=== PATIENT | male | born 1970 | race Caucasian/White ===

== ENCOUNTER 2017-05-29 06:03 | Emergency (ER) | payer OTHER ==
[~2017-05-29] VITALS: Ht 182.8 cm; Wt 99.8 kg
[~2017-05-29 06:03] MED LIST: AUGMENTIN 875 M1 TAB PO; BACTRIM DS 8001 TA1 PO; CIPRO500 MG PO; DARVOCET N 1001 TAB PO; PRILOSEC40 MG; ZYRTEC10 MG
== END 2017-05-29 07:57 | disposition home or self-care (01) ==
LOC: ED 06:03
DX: S60.221A Contusion of right hand, initial encounter (principal); W23.0XXA Caught, crushed, jammed, or pinched between moving objects, initial encounter; Y93.89 Activity, other specified; Y92.69 Other specified industrial and construction area as the place of occurrence of the external cause; Y99.0 Civilian activity done for income or pay

== ENCOUNTER → 2018-05-07 | Outpatient (CLI) | payer OTHER ==
[2018-05-07 11:32] LABS: MEAN CELL VOLUME 86.1 fl (80.0-94.0); MEAN CORPUSCULAR HGB 29.3 pg (27.0-31.0); MEAN PLATELET VOLUME 9.5 fl (9.6-12.3); RED BLOOD COUNT 5.46 10*6/uL (4.50-5.90); RED CELL DISTRI WIDTH 13.2 % (0-14.5); WHITE BLOOD COUNT 8.5 10*3/uL (4.8-10.8)
[2018-05-07 12:04] LABS: CHLORIDE 105 mmol/L (98-107); POTASSIUM 3.9 mmol/L (3.5-5.1); SODIUM 139 mmol/L (136-145)
[2018-05-07 12:22] LABS: ALBUMIN 4.2 gm/dl (3.1-4.5); ALKALINE PHOSPHATASE 63 U/L (45-117); BUN 28 mg/dl (7-24); CHOLESTEROL 177 mg/dL (<200); CREATININE 1.07 mg/dL (0.70-1.30); HDL CHOLESTEROL 31 mg/dl (40-60); LDL CHOLESTEROL 69 mg/dL (9-159); SGOT/AST 27 IU/L (3-35); SGPT/ALT 46 U/L (12-78); TOTAL PROTEIN 7.8 gm/dL (6.4-8.2); TRIGLYCERIDES 386 mg/dl (<150); VLDL CHOLESTEROL 77 mg/dL (6-40)
== END | disposition home or self-care (01) ==
LOC: LAB 10:47
PROVIDERS: Family Medicine
DX: E78.00 Pure hypercholesterolemia, unspecified (principal); I10 Essential (primary) hypertension; R00.2 Palpitations

== ENCOUNTER 2018-09-13 08:18 | Inpatient (IN) | payer OTHER ==
[2018-09-13] VITALS (7 sets, daily range): BP systolic 124–162; BP diastolic 81–100
[~2018-09-13] VITALS: Ht 182.8 cm; Wt 108.5 kg
--- NOTE | ~2018-09-13 | ST ---
[place], [place] EXERCISE STRESS TEST REPORT [id number] UNIT #: [id number] ROOM: 404 DOCTOR: JENSEN LIU,TONO Oconnor BIRTHDATE: [birth year] DOS: 09/14/2018 EKG PART OF THE TREADMILL TEST WITH CARDIOLITE The patient is a 48-year-old gentleman admitted to [facility] with recurrent episodes of chest pains. The patient's cardiac enzymes were negative. The patient was tested under standard [place] protocol and he exercised for 10 minutes and 30 seconds and the test was stopped because of patient's fatigue and he had reached the targeted heart rate of 91% of the PMHR. Peak heart rate was 158 beats per minute. Peak blood pressure was 178 systolic over 98 diastolic. The patient's baseline EKG showed normal sinus rhythm, normal cardiac axis, no significant ST-T abnormality. During the exercise and recovery phase, the patient did not develop any significant EKG abnormality compatible with myocardial ischemia. IMPRESSION: 1. Normal EKG part of the treadmill Cardiolite stress test at 91% peak maximal heart rate. 2. Nuclear scan results to be reported by Dr. West later today. TONO STYLES MD CM:STRESS:EXERCISE STRESS TEST REPORT [id number] TONO STYLES MD
--- NOTE | ~2018-09-13 | EKG ---
[place], [place] ELECTROCARDIOGRAM REPORT NAME: BROOK KWON UNIT #: [id number] ROOM: 404 DOCTOR: XIANG DRAFT REPORT BIRTHDATE: [birth year] [facility] Test Date: 2018-09-13 Test Time: 14:39:13 Pat Name: BROOK KWON Department: Room: H2006 Gender: M Comptometer Operator: ADALID : 1970 Requested By: MATHEW MARTIN Order Number: [id number] Reading MD: Alexandre West MD Measurements Intervals [place] Rate: 74 P: 32 IN: 159 QRS: 48 QRSD: 101 T: 33 QT: 383 QTc: 425 Interpretive Statements Sinus rhythm No change from earlier ECG this date. Electronically Signed On 09-13-2018 12:48:27 PDT by Alexandre West MD CM:EKGRPT:ELECTROCARDIOGRAM REPORT [id number] MATHEW SAUNDERS DRAFT REPORT MATHEW MARTIN DO
--- NOTE | ~2018-09-13 | WRIGHTHP ---
[place], [place] PATIENT HISTORY AND PHYSICAL EXAM NAME: BROOK KWON [facility] #: [id number] UNIT #: [id number] ROOM: 404 DOCTOR: TONO STYLES MD BIRTHDATE: [birth year] DOS: HISTORY OF PRESENT ILLNESS: The patient is a 48-year-old gentleman with a past medical history of: 1. Gastroesophageal reflux disease and esophagitis. 2. Benign essential hypertension. 3. Obesity with a BMI of 32.4. The patient presented to the Emergency Department with 2 episodes of chest pressure sensation in the lower substernal area with some sweating, but no nausea, vomiting, no radiation of the pain. The patient's second episode lasted more than an hour and he was evaluated in the Emergency Department. The patient was admitted and his cardiac enzymes were found to be normal and he was scheduled for a cardiac stress test. No GI or urinary symptoms. REVIEW OF SYSTEMS: CARDIOVASCULAR SYSTEM: Complains of recurrent chest pressure, two episodes prior to hospital admission. GASTROINTESTINAL: History of acid reflux for which the patient takes Zantac. RESPIRATORY: No increasing shortness of breath or wheezing. FAMILY HISTORY: Noncontributory. SOCIAL HISTORY: Denies smoking cigarettes, alcohol or drug abuse. HOME MEDICATIONS: The patient takes metoprolol and Zantac at home. ALLERGIES: No known drug allergies. PHYSICAL EXAMINATION: GENERAL: Alert and oriented x 3, obese, BMI of 32.5. VITAL SIGNS: Blood pressure 122/86, heart rate of 62 beats per minute, breathing 18 times per minute, afebrile. HEENT AND NECK: Extraocular movements are intact. Sclerae are anicteric. Oral mucosa is moist and clean. No obvious facial weakness. Neck is supple without any lymphadenopathy. No thyromegaly. No JVD. No carotid arterial bruits. LUNGS: Clear to auscultation. No wheezing. No rhonchi. CARDIOVASCULAR SYSTEM: Heart rate is regular in rate and rhythm. S1 and S2 normally audible. No significant murmur or any other abnormal cardiac sounds. ABDOMEN: Soft, nontender. No obvious organomegaly. Bowel sounds are present. No obvious herniation. EXTREMITIES: Without significant cyanosis or edema. Warm to touch. CENTRAL NERVOUS SYSTEM: Alert and oriented x 3. Cranial nerves II-XII are intact. Speech is normal. The patient is able to move all extremities. Normal muscle strength. Deep tendon reflexes are equal on both sides. Plantars were downgoing. IMPRESSION: [place], [place] PATIENT HISTORY AND PHYSICAL EXAM NAME: BROOK KWON [facility] #: [id number] UNIT #: [id number] ROOM: [facility] DOCTOR: TONO STYLES MD BIRTHDATE: [birth year] 1. The patient with 2 episodes of chest pressure sensation in substernal and epigastric, no radiation, some diaphoresis, but no nausea, vomiting with negative cardiac enzymes, taken for a cardiac stress test and results are still pending. 2. Obesity, BMI of 32.5. The patient worked with [employer]. 3. Benign essential hypertension. The patient continued on metoprolol. Blood pressures are well controlled. 4. Gastroesophageal reflux disease and esophagitis for which the patient takes Zantac at home. Recommended to try omeprazole and head in elevation. 5. Nuclear scan results will be reported by Dr. West later today and if normal, he can be discharged to home and to follow up with Dr. Mian Everett within a week. TONO STYLES MD CM:HISPHYS:PATIENT HISTORY AND PHYSICAL EXAMINATION [id number] TONO STYLES MD 09/14/18 1141 interface
--- NOTE | ~2018-09-13 | EKG ---
[place], [place] ELECTROCARDIOGRAM REPORT NAME: BROOK KWON UNIT #: [id number] ROOM: [facility] DOCTOR: XIANG DRAFT REPORT BIRTHDATE: [birth year] [facility] [place] Test Date: 2018-09-13 Test Time: 08:22:42 Pat Name: BROOK KWON Department: Room: 006 Gender: M Differential Tester: : 1970 Requested By: MATHEW MARTIN Order Number: [id number] Reading MD: Alexandre West MD Measurements Intervals [place] Rate: 60 P: 25 IN: 154 QRS: 58 QRSD: 105 T: 31 QT: 405 QTc: 405 Interpretive Statements Sinus rhythm Electronically Signed On 09-13-2018 12:45:48 PDT by Alexandre West MD CM:EKGRPT:ELECTROCARDIOGRAM REPORT [id number] 1245 MATHEW SAUNDERS DRAFT REPORT MATHEW MARTIN DO
--- NOTE | ~2018-09-13 | EKG ---
[place], [place] ELECTROCARDIOGRAM REPORT NAME: BROOK KWON UNIT #: [id number] ROOM: 404 DOCTOR: XIANG DRAFT REPORT BIRTHDATE: [birth year] [facility] Test Date: 2018-09-13 Test Time: 12:18:12 Pat Name: BROOK KWON Department: Room: H2006 Gender: M Rn L And D: EBONIE : 1970 Requested By: MATHEW MARTIN Order Number: [id number] Reading MD: Alexandre West MD Measurements Intervals [place] Rate: 65 P: 45 [place]: 160 QRS: 39 QRSD: 103 T: 27 QT: 398 QTc: 414 Interpretive Statements Sinus rhythm No change from earlier ECG this date. Electronically Signed On 09-13-2018 12:46:45 PDT by Alexandre West MD CM:EKGRPT:ELECTROCARDIOGRAM REPORT [id number] 1246 MATHEW SAUNDERS DRAFT REPORT MATHEW MARTIN DO
[2018-09-13 08:32] LABS: BASO # 0.1 10*3/uL (0.0-0.1); BASO % 0.7 % (0.0-1.0); EOS # 0.3 10*3/uL (0.0-0.4); EOS % 3.3 % (1.0-4.0); HEMATOCRIT 43.6 % (42.0-52.0); LYMPH # 2.7 10*3/uL (1.3-4.4); LYMPH % 31.2 % (27.0-41.0); MEAN CELL VOLUME 86.9 fl (80.0-94.0); MEAN CORPUSCULAR HGB 29.9 pg (27.0-31.0); MEAN CORPUSCULAR HGB CONC 34.4 g/dl (33.0-37.0); MEAN PLATELET VOLUME 9.2 fl (9.6-12.3); MONO # 0.7 10*3/uL (0.1-1.0); MONO % 7.7 % (3.0-9.0); NEUT # 4.9 10*3/uL (2.3-7.9); NEUT % 56.5 % (47.0-73.0); PLATELET COUNT AUTOMATED 240 10*3/uL (130-400); RED BLOOD COUNT 5.02 10*6/uL (4.50-5.90); RED CELL DISTRI WIDTH 13.1 % (0-14.5); WHITE BLOOD COUNT 8.6 10*3/uL (4.8-10.8)
[2018-09-13 08:41] LABS: ACT PARTIAL THROMBO TIME 25.9 SECONDS (20.8-31.5); INTERNATIONAL NORM RATIO 0.9 (2.0-3.5)
[2018-09-13] MEDS ORDERED: LOPRESSOR25 MG PO (08:46)
[2018-09-13 08:48] LABS: ALBUMIN 3.6 gm/dl (3.1-4.5); ALKALINE PHOSPHATASE 61 U/L (45-117); BUN 27 mg/dl (7-24); CHLORIDE 107 mmol/L (98-107); CREATININE 1.45 mg/dL (0.70-1.30); POTASSIUM 4.3 mmol/L (3.5-5.1); SGOT/AST 18 IU/L (3-35); SGPT/ALT 40 U/L (12-78); SODIUM 142 mmol/L (136-145); TOTAL PROTEIN 7.5 gm/dL (6.4-8.2)
[2018-09-13 08:51] LABS: TROPONIN I < 0.015 ng/ml (<0.045)
[2018-09-13] MEDS ORDERED: ASPIR-TRIN325 MG PO (12:21)
[2018-09-13] MEDS ORDERED: ZANTAC 150150 MG PO (20:03)
[2018-09-14] VITALS: BP 122/86
[2018-09-14 10:04] VITALS: BP 112/76
[2018-09-14 12:00] VITALS: BP 116/71
== END 2018-09-14 16:08 | disposition home or self-care (01) | DRG 313 ==
LOC: ED 08:18 → EDHOLD 11:14 → 4E 11:14
PROVIDERS: Emergency Medicine
DX: R07.9 Chest pain, unspecified (principal); I10 Essential (primary) hypertension; K21.9 Gastro-esophageal reflux disease without esophagitis; E66.9 Obesity, unspecified; Z79.899 Other long term (current) drug therapy; Z98.52 Vasectomy status; Z68.32 Body mass index [BMI] 32.0-32.9, adult

== ENCOUNTER → 2020-01-20 | Outpatient (CLI) | payer BC ==
[~2020-01-20] MED LIST changes: +ASPIR-TRIN325 MG PO; +LOPRESSOR25 MG PO; +ZANTAC 150150 MG PO
[2020-01-20 10:50] LABS: HEMATOCRIT 47.5 % (42.0-52.0); HEMOGLOBIN 16.4 g/dl (14.0-18.0); MEAN CELL VOLUME 85.7 fl (80.0-94.0); MEAN CORPUSCULAR HGB 29.6 pg (27.0-31.0); MEAN CORPUSCULAR HGB CONC 34.5 g/dl (33.0-37.0); MEAN PLATELET VOLUME 8.9 fl (9.6-12.3); RED BLOOD COUNT 5.54 10*6/uL (4.50-5.90); RED CELL DISTRI WIDTH 12.9 % (0-14.5); WHITE BLOOD COUNT 7.7 10*3/uL (4.8-10.8)
[2020-01-20 11:22] LABS: ALBUMIN 3.8 gm/dl (3.1-4.5); BUN 25 mg/dl (7-24); CHLORIDE 107 mmol/L (98-107); CHOLESTEROL 187 mg/dL (<200); CREATININE 1.21 mg/dL (0.70-1.30); HDL CHOLESTEROL 33 mg/dl (40-60); LDL CHOLESTEROL 92 mg/dL (9-159); POTASSIUM 3.6 mmol/L (3.5-5.1); SGOT/AST 19 IU/L (3-35); SGPT/ALT 39 U/L (12-78); SODIUM 143 mmol/L (136-145); TRIGLYCERIDES 311 mg/dl (<150); VLDL CHOLESTEROL 62 mg/dL (6-40)
[2020-01-20 11:24] LABS: ALKALINE PHOSPHATASE 75 U/L (45-117)
== END | disposition home or self-care (01) ==
LOC: LAB 10:31
PROVIDERS: Family Medicine
DX: Z13.220 Encounter for screening for lipoid disorders (principal); E55.9 Vitamin D deficiency, unspecified; K21.9 Gastro-esophageal reflux disease without esophagitis; R19.00 Intra-abdominal and pelvic swelling, mass and lump, unspecified site

== ENCOUNTER → 2020-01-24 | Outpatient (CLI) | payer BC | END | disposition home or self-care (01) | LOC: CT 10:39 | DX: N20.0 Calculus of kidney (principal); D17.30 Benign lipomatous neoplasm of skin and subcutaneous tissue of unspecified sites; J98.11 Atelectasis; R19.04 Left lower quadrant abdominal swelling, mass and lump ==

== ENCOUNTER → 2020-10-30 | Outpatient (CLI) | payer SELFPAY | END | disposition home or self-care (01) | LOC: COVID19 08:10 | PROVIDERS: ATTEND Hospitalist | DX: U07.1 COVID-19 (principal) ==

== ENCOUNTER 2022-07-30 15:06 | Emergency (ER) | payer OTHER ==
[~2022-07-30] VITALS: Wt 90.7 kg
[2022-07-30] MEDS ORDERED: PREDNISONE50 MG PO (16:58)
== END 2022-07-30 17:03 | disposition home or self-care (01) ==
LOC: ED 15:06
DX: R60.0 Localized edema (principal); Z79.899 Other long term (current) drug therapy; F17.200 Nicotine dependence, unspecified, uncomplicated; Z98.890 Other specified postprocedural states

== ENCOUNTER → 2022-08-07 | Outpatient (CLI) | payer OTHER ==
[~2022-08-07] MED LIST changes: +PREDNISONE50 MG PO
[2022-08-07 13:08] LABS: HEMATOCRIT 47.7 % (42.0-52.0); MEAN CELL VOLUME 87.5 fl (80.0-94.0); MEAN CORPUSCULAR HGB 29.4 pg (27.0-31.0); MEAN CORPUSCULAR HGB CONC 33.5 g/dl (33.0-37.0); MEAN PLATELET VOLUME 9.1 fl (9.6-12.3); RED BLOOD COUNT 5.45 10*6/uL (4.50-5.90); RED CELL DISTRI WIDTH 13.2 % (0-14.5); WHITE BLOOD COUNT 9.2 10*3/uL (4.8-10.8)
[2022-08-07 13:27] LABS: ALKALINE PHOSPHATASE 62 U/L (45-117); BUN 24 mg/dl (7-24); CHLORIDE 109 mmol/L (98-107); CHOLESTEROL 189 mg/dL (<200); CREATININE 1.01 mg/dL (0.70-1.30); LDL CHOLESTEROL 89 mg/dL (9-159); POTASSIUM 3.8 mmol/L (3.5-5.1); SGOT/AST 12 IU/L (3-35); SGPT/ALT 35 U/L (12-78); SODIUM 139 mmol/L (136-145); TRIGLYCERIDES 329 mg/dl (<150)
[2022-08-07 14:03] LABS: VITAMIN D, 25-HYDROXY 25.8 ng/mL (30-100)
== END | disposition home or self-care (01) ==
LOC: LAB 12:26
PROVIDERS: ATTEND Family Medicine
DX: Z00.00 Encounter for general adult medical examination without abnormal findings (principal); Z12.5 Encounter for screening for malignant neoplasm of prostate; E78.00 Pure hypercholesterolemia, unspecified; E55.9 Vitamin D deficiency, unspecified

== ENCOUNTER 2023-03-06 14:13 | Emergency (ER) | payer OTHER ==
[~2023-03-06] VITALS: Wt 92.5 kg
[2023-03-06 15:04] LABS: BASO # 0.1 10*3/uL (0.0-0.1); BASO % 0.5 % (0.0-1.0); EOS # 0.2 10*3/uL (0.0-0.4); HEMATOCRIT 45.2 % (42.0-52.0); LYMPH # 2.7 10*3/uL (1.3-4.4); LYMPH % 22.4 % (27.0-41.0); MEAN CELL VOLUME 84.6 fl (80.0-94.0); MEAN CORPUSCULAR HGB CONC 35.4 g/dl (33.0-37.0); MEAN PLATELET VOLUME 9.4 fl (9.6-12.3); MONO # 0.8 10*3/uL (0.1-1.0); MONO % 6.6 % (3.0-9.0); NEUT # 8.1 10*3/uL (2.3-7.9); NEUT % 68.2 % (47.0-73.0); PLATELET COUNT AUTOMATED 270 10*3/uL (130-400); RED BLOOD COUNT 5.34 10*6/uL (4.50-5.90); RED CELL DISTRI WIDTH 12.5 % (0-14.5); WHITE BLOOD COUNT 11.9 10*3/uL (4.8-10.8)
[2023-03-06 15:18] LABS: ALKALINE PHOSPHATASE 57 U/L (46-116); BUN 18 mg/dl (9-23); CHLORIDE 106 mmol/L (98-107); LIPASE 36 U/L (12-53); POTASSIUM 3.4 mmol/L (3.4-5.1); SGPT/ALT 14 U/L (10-49)
[2023-03-06 16:35] LABS: BILIRUBIN Negative (Negative); BLOOD Negative (Negative); CLARITY Clear (Clear); COLOR Yellow (Yellow); GLUCOSE Negative (Negative); KETONE Negative (Negative); LEUKO ESTERASE Negative (Negative); NITRITE Negative (Negative); SPECIFIC GRAVITY 1.015 (1.001-1.030); UROBILINOGEN 0.2 E.U./dl (0.0-1.0)
[2023-03-06 17:06] LABS: EPITHELIAL CELLS 0-2; RBC 0-2 rbc/hpf (0-2); WBC 0-2 wbc/hpf (0-5)
[2023-03-06] MEDS ORDERED: HYDROCODONE-AC1 EAC1 PO (19:44)
[2023-03-06] MEDS ORDERED: DICYCLOMINE HCL10 MG PO (19:44)
[2023-03-06] MEDS ORDERED: ONDANSETRON4 MG SL (19:44)
== END 2023-03-06 20:06 | disposition home or self-care (01) ==
LOC: ED 14:13
PROVIDERS: Physician Assistant
DX: K80.20 Calculus of gallbladder without cholecystitis without obstruction (principal); R11.0 Nausea; I10 Essential (primary) hypertension; Z88.8 Allergy status to other drugs, medicaments and biological substances; Z98.890 Other specified postprocedural states